=== PATIENT | female | born 1955 | race Caucasian/White ===

== ENCOUNTER 2017-05-23 11:46 | Emergency (ER) | payer BC ==
[2017-05-23 11:52] VITALS: RESP 18
[2017-05-23] MEDS ORDERED: HYDROcodone/APAP 5-325MG 1 EACH TAB PO STA (12:11)
[2017-05-23 12:30] LABS: Appearance,Urine Clear (Clear); Bilirubin,Urine Negative (Negative); Blood,Urine Negative (Negative); Color,Urine Colorless; Glucose,Urine (UA) Negative (Negative); Ketones,Urine Negative (Negative); Leukocyte Esterase,Urine Negative (Negative); Nitrite,Urine Negative (Negative); Protein,Urine Negative (Negative); Specific Gravity,Urine 1.002 (1.001-1.035); Urobilinogen,Urine <2.0 mg/dL (<2.0)
--- NOTE | 2017-05-23 12:52 | XR ---
EXAMINATION TYPE: XR pelvis AP view DATE OF EXAM: 05/23/2017 CLINICAL HISTORY: pain TECHNIQUE: Single view the pelvis is submitted. FINDINGS: No evidence for fracture, dislocation or bony lesion. Joint spaces are well-preserved. S I joints appear symmetric. IMPRESSION: 1. No acute fracture or dislocation seen. ICD 10 NO FRACTURE, INITIAL EVALUATION
--- NOTE | 2017-05-23 12:53 | XR ---
EXAMINATION TYPE: XR lumbar spine 2 or 3V DATE OF EXAM: 05/23/2017 CLINICAL HISTORY: pain TECHNIQUE: Three views of the lumbar spine are submitted. COMPARISON: None. FINDINGS: There are 5 lumbar type vertebral bodies identified. The lumbar spine shows satisfactory alignment w ithout evidence of acute fracture or dislocation. Vertebral body heights are within normal limits. Mild degenerative change at L4-5 and L5-S1. Grade 1 anterolisthesis L5 on S1. Mild scattered ventral spondylosis. The overlying soft tissue appears unremarkable. IMPRESSION: No acute fracture is seen of the lumbar spine. ICD 10 NO FRACTURE, INITIAL EVALUATION
--- NOTE | 2017-05-23 13:08 | ED ---
Abdominal Pain HPI - General Chief Complaint: Abdominal Pain Stated Complaint: Abd.pain Time Seen by Provider: 05/23/17 11:56 Source: patient Mode of arrival: ambulatory Limitations: no limitations - History of Present Illness Initial Comments: This is a 62-year-old female with a history of ovarian cysts or presents emergency department for lower abdominal pain and back pain. She states that the symptoms started a few days ago and gradually worsened. She states that she also noticed that the pain radiates down the anterior aspect of her thighs at times. She states that nothing seems to make the pain better or worse and is discussing. She tried Motrin at home however this is not improved the symptoms. She states that she has not injured herself or fallen. She denies any midline back pain. Denies any fevers or chills. No nausea, vomiting, or diarrhea. Denies any dysuria or hematuria. No other complaints. - Related Data Previous Rx's Medication Instructions Recorded HYDROcodone/APAP 5-325MG [Sherburn 1 tab PO Q6HR PRN #10 tab 05/23/17 5-325] Allergies Allergy/AdvReac Type Severity Reaction Status Date / Time No Known Allergies Allergy Verified 05/23/17 12:51 Review of Systems ROS Statement: Those systems with pertinent positive or pertinent negative responses have been documented in the HPI. ROS Other: All systems not noted in ROS Statement are negative. Past Medical History Past Medical History: Hypertension Additional Past Medical History / Comment(s): Aortic stenosis History of Any Multi-Drug Resistant Organisms: None Reported Past Surgical History: Section, Tonsillectomy, Tubal Ligation Additional Past Surgical History / Comment(s): Aortic stent, angiogram Past Psychological History: No Psychological Hx Reported Smoking Status: Never smoker Past Alcohol Use History: Occasional Past Drug Use History: None Reported General Exam - General Exam Comments Initial Comments: Constitutional: Awake alert Appears comfortable Head: Normocephalic atraumatic Eyes: no conjunctival injection No scleral icterus EOMI Neck: No JVD Supple Heart: Regular rate rhythm normal S1-S2 no murmurs Lungs: Clear to auscultation bilaterally No wheezing No rales Abdomen: Soft nondistended mild suprapubic tenderness without rebound or guarding Extremities: Non edematous DP pulses intact Radial pulses intact, no midline low back pain. There is bilateral pain over the SI joints Neuro: A&Ox3, 5 out of 5 strength with dorsiflexion and plantar flexion of bilateral lower extremities, 2 out of 4 patellar reflexes bilaterally, sensation intact to light touch in bilateral lower extremities, patient has normal gait Psych: Appropriate mood and affect Limitations: no limitations Course Vital Signs 05/23/17 11:48 Temperature 97.0 F L Pulse Rate 65 Respiratory 18 Rate Blood Pressure 133/90 O2 Sat by Pulse 99 Oximetry Medical Decision Making - Medical Decision Making This is a 62-year-old female who presents emergency department for pelvic pain. She is found to have a left-sided ovarian mass. Was unclear whether this represented a fibroid or a dermoid cyst. CAT scan was done to try to differentiate however was unable to. Recommendation is for an MRI however this will not be performed to the ER. Patient was given [employer] for follow-up and she is going to call us and she weighs. She'll be given Sherburn for pain control. Told to return she has worsening or changing symptoms. All questions were answered. - Lab Data Lab Results 05/23/17 Range/Units 12:16 Urine Color Colorless Urine Appearance Clear (Clear) Urine pH 6.0 (5.0-8.0) Ur Specific [place] 1.002 (1.001-1.035) Urine Protein Negative (Negative) Urine Glucose (UA) Negative (Negative) Urine Ketones Negative (Negative) Urine Blood Negative (Negative) Urine Nitrite Negative (Negative) Urine Bilirubin Negative (Negative) Urine Urobilinogen <2.0 (<2.0) mg/dL Ur Leukocyte Esterase Negative (Negative) Disposition Clinical Impression: Ovarian cyst Disposition: HOME SELF-CARE Condition: Stable Instructions: Ovarian Cyst (ED), Uterine Fibroids (ED) Prescriptions: HYDROcodone/APAP 5-325MG [Sherburn 5-325] 1 tab PO Q6HR PRN #10 tab PRN Reason: Pain Referrals: Marko Nieto DO [Primary Care Provider] - 1-2 days Jacinta Burch MD [STAFF PHYSICIAN] - 1-2 days
--- NOTE | 2017-05-23 13:37 | US ---
EXAMINATION TYPE: US transvaginal DATE OF EXAM: 05/23/2017 COMPARISON: US 2009 CLINICAL HISTORY: Pain. Pelvic pain radiating to back and down legs x 3 days; , C section x 2, tu bal ligation; LMP early 50's. TECHNIQUE: Transvaginal (TV) and Transabdominal (TA) Date of LMP: approximately 10 years ago EXAM MEASUREMENTS: Uterus: 6.8 x 6.0 x 2.3 cm Endometrial Stripe: 0.3 cm Right Ovary: 1.9 x 0.8 x 1.1 cm Left Ovary: may be part of uterine mass vs. large ovarian dermoid cyst 1. Uterus: Retroverted; left lateral myometrial fibroid vs. left ovarian dermoid cyst 2. Endometrium: wnl post menopausal 3. Right Ovary: small follicles 4. Left Ovary: not well seen Spectral, color and waveform doppler imaging shows good arterial and venous flow within the right o vary; there is no evidence for right ovarian torsion. 5. Bilateral Adnexa: large round/oval hyperechoic mass = 2.9 x 3.8 x 1.5cm with posterior shadowing imaged left ovary/adnexa and may be large left uterine fibroid with adjacent ovarian dermoid cyst vs. large dermoid cyst with no visualized normal left ovarian tissue. 6. Posterior cul-de-sac: wnl IMPRESSION: 1. Suspect left adnexal dermoid cyst. Consider CT correlation.
--- NOTE | 2017-05-23 14:37 | CT ---
EXAMINATION TYPE: CT pelvis wo con DATE OF EXAM: 05/23/2017 COMPARISON: Pelvic ultrasound of the same date HISTORY: Patient complains of generalized pelvic pain. Abnormal US. CT DLP: 159.5 mGycm Automated exposure control for dose reduction was used. FINDINGS: Within the left adnexa there is an approximately 3.1 x 2.4 cm lesion containing numerous calcificatio ns. This appears intimately associated with the uterus and it is unclear whether this represents an o varian lesion or pedunculated uterine leiomyoma. No distinct internal fat attenuation is seen. The ri ght ovary is not clearly identified by CT. The gonadal vein is unopacified and there is no clear conn ection with the gonadal vein with the calcified structure. Visualized bowel is nondilated. Visualized kidneys demonstrate no evidence of nephrolithiasis or hydr onephrosis. Visualized portions of the gallbladder demonstrates no evidence of cholelithiasis. No alofnzo ss evidence of adenopathy within the abdomen or pelvis. Osseous structures appear intact. IMPRESSION: LEFT ADNEXAL CALCIFIED MASS IS INTIMATELY ASSOCIATED WITH THE MYOMETRIUM AND THERE IS NO CLEAR DELINE ATION TO IDENTIFY WHETHER THIS REPRESENTS A PEDUNCULATED UTERINE FIBROID OR OVARIAN DERMOID. ENHANCED PELVIC MRI WOULD BE MORE DEFINITIVE. ALTERNATIVELY PELVIC CT WITH CONTRAST WOULD ALSO COULD ALSO DEL INEATE MORE CLEAR BORDERS OF THE UTERUS.
[2017-05-23 15:01] VITALS: BP 143/69; PULSE 68; TEMP 97.9
== END 2017-05-23 15:01 | disposition home or self-care (01) ==
LOC: EC 11:46
DX: N83.202 Unspecified ovarian cyst, left side (principal); Z98.51 Tubal ligation status
CPT/HCPCS: 72100; 72170; 72192; 76830; 76856; 81003; 93976; 99284

== ENCOUNTER → 2018-06-19 | Outpatient (CLI) | payer BC ==
--- NOTE | 2018-06-20 10:01 | MM ---
Reason for exam: screening (asymptomatic). Last mammogram was performed 3 years and 2 months ago. History: Patient is postmenopausal. Family history of breast cancer in sister at age 40. Excisional biopsy of the left breast. Took hormonal contraceptives for 3 years. Physical Findings: A clinical breast exam by your physician is recommended on an annual basis and results should be correlated with mammographic findings. MG 3D Screening Mammo W/Cad Bilateral CC and MLO view(s) were taken. Prior study comparison: April 23, 2015, bilateral MG screening mammo w CAD. March 08, 2013, mammogram, performed at [facility]. The breast tissue is heterogeneously dense. This may lower the sensitivity of mammography. Focal asymmetry central left MLO view 4.6cm from nipple. ASSESSMENT: Incomplete: need additional imaging evaluation, BI-RAD 0 RECOMMENDATION: Special view mammogram of the left breast. If lesion persists on supplemental views, image directed ultrasound is recommended. [facility] will attempt to contact patient to return for supplemental views and ultrasound if indicated.
== END | disposition home or self-care (01) ==
LOC: RADMAMWWP 14:36
PROVIDERS: ATTEND Family Medicine
DX: Z12.31 Encounter for screening mammogram for malignant neoplasm of breast (principal)
CPT/HCPCS: 77063; 77067

== ENCOUNTER → 2018-07-03 | Outpatient (CLI) | payer BC ==
--- NOTE | 2018-07-04 08:18 | MM ---
Reason for exam: additional evaluation requested from abnormal screening. Last mammogram was performed less than 1 month ago. History: Patient is postmenopausal. Family history of breast cancer in sister at age 40. Excisional biopsy of the left breast. Took hormonal contraceptives for 3 years. Physical Findings: Nurse did not find any significant physical abnormalities on exam. MG 3D Work Up W/Cad LT CC and MLO view(s) were taken of the left breast. Prior study comparison: June 19, 2018, bilateral MG 3d screening mammo w/cad. April 23, 2015, bilateral MG screening mammo w CAD. The breast tissue is heterogeneously dense. This may lower the sensitivity of mammography. No distinct lesion persists on additional views. These results were verbally communicated with the patient and result sheet given to the patient on 07/03/18. ASSESSMENT: Benign, BI-RAD 2 RECOMMENDATION: Return to routine screening mammogram schedule for both breasts.
== END | disposition home or self-care (01) ==
LOC: RADMAMWWP 14:20
PROVIDERS: ATTEND Family Medicine
DX: R92.8 Other abnormal and inconclusive findings on diagnostic imaging of breast (principal)
CPT/HCPCS: 77061; 77065

== ENCOUNTER → 2019-06-25 | Outpatient (CLI) | payer MEDICARE, BC ==
--- NOTE | 2019-06-27 10:09 | MM ---
Reason for exam: screening (asymptomatic). Last mammogram was performed 1 year ago. History: Patient is postmenopausal. Family history of breast cancer in sister at age 40. Excisional biopsy of the left breast. Took hormonal contraceptives for 3 years. Physical Findings: A clinical breast exam by your physician is recommended on an annual basis and results should be correlated with mammographic findings. MG 3D Screening Mammo W/Cad Bilateral CC and MLO view(s) were taken. Prior study comparison: June 19, 2018, bilateral MG 3d screening mammo w/cad. April 23, 2015, bilateral MG screening mammo w CAD. The breast tissue is heterogeneously dense. This may lower the sensitivity of mammography. No significant changes when compared with prior studies. ASSESSMENT: Negative, BI-RAD 1 RECOMMENDATION: Routine screening mammogram of both breasts in 1 year.
== END | disposition home or self-care (01) ==
LOC: RADMAMWWP 07:40
PROVIDERS: ATTEND Family Medicine
DX: Z12.31 Encounter for screening mammogram for malignant neoplasm of breast (principal); Z80.3 Family history of malignant neoplasm of breast
CPT/HCPCS: 77063; 77067

== ENCOUNTER → 2019-12-18 | Outpatient (CLI) | payer BC ==
--- NOTE | 2019-12-18 15:50 | US ---
EXAMINATION TYPE: US extremity nonvasc mass LT DATE OF EXAM: 12/18/2019 COMPARISON: NONE CLINICAL HISTORY: 64-year-old female R22.32 L FOREARM MASS. Left forearm palpable lump x couple weeks . TECHNIQUE: Targeted ultrasound examination along the patient's palpable site along the left forearm. FINDINGS: WEATHERIZATION OPERATIONS MANAGER NOTES: Left forearm: no abnormalities seen at patient's area of concern. IMPRESSION: Submitted images are labeled left forearm palpable. Within the superficial tissues, no solid or cysti c lesion is identified by ultrasound. Clinical follow-up recommended. The area can be rescanned if an y enlarging palpable abnormality is encountered.
== END | disposition home or self-care (01) ==
LOC: RADUSWWP 13:52
PROVIDERS: ATTEND Family Medicine
DX: R93.6 Abnormal findings on diagnostic imaging of limbs (principal)

== ENCOUNTER → 2020-01-01 | Outpatient (CLI) | payer MEDICARE ==
--- NOTE | 2020-01-01 14:11 | MR ---
EXAMINATION TYPE: MR shoulder LT wo con DATE OF EXAM: 01/01/2020 1:51 PM COMPARISON: NONE HISTORY: Pain in left shoulder TECHNIQUE: Multiplanar multispin echo imaging of the left shoulder was performed. FINDINGS: Rotator cuff : There is heterogeneity and thinning of the supraspinatus tendon compatible with chroni c tendinopathy. There is no complete or bursal/articular sided partial rotator cuff tear. The subscap ularis constituent of the rotator cuff is intact. Bursa: No bursal effusion or thickening is seen. Musculature: There is no muscular tear, contusion, or atrophy. Acromioclavicular joint : Moderate subacromial spur formation resulting in impingement. Moderate AC j oint arthropathy. Osseous structures : There are no fractures or regions of abnormal bone marrow signal intensity. Long biceps tendon : The biceps tendon is normally situated within the bicipital groove. No complete or partial biceps tendon tear is present. Glenohumeral Joint fluid : There is no glenohumeral joint effusion. Cartilage and Bone : No focal hyaline cartilage defects are noted. No Hill-Sachs, reverse Hill-Sachs, or bony Bankart lesions are seen. Labrum : There are no SLAP or soft tissue Bankart lesions. No paralabral cysts are seen. OTHER FINDINGS : Subchondral cyst formation humeral head. IMPRESSION: 1. Chronic tendinopathy supraspinatus tendon secondary to subacromial impingement.
== END | disposition home or self-care (01) ==
LOC: RADMRIMAIN 13:13
PROVIDERS: ATTEND Orthopaedic Surgery
DX: M67.814 Other specified disorders of tendon, left shoulder (principal)

== ENCOUNTER → 2020-02-06 | Outpatient (CLI) | payer MEDICARE ==
[2020-02-06 11:19] LABS: Potassium 4.6 mmol/L (3.5-5.1)
[2020-02-06 12:07] LABS: Basophils % (A) 1 %; Eosinophils # (A) 0.1 k/uL (0-0.7); Eosinophils % (A) 3 %; HCT 45.1 % (34.0-46.0); HGB 13.8 gm/dL (11.4-16.0); Lymphocytes # (A) 1.5 k/uL (1.0-4.8); Lymphocytes % (A) 37 %; MCH 29.6 pg (25.0-35.0); MCHC 30.7 g/dL (31.0-37.0); MCV 96.4 fL (80.0-100.0); Monocytes # (A) 0.3 k/uL (0-1.0); Monocytes % (A) 7 %; Neutrophils # (A) 2.1 k/uL (1.3-7.7); Neutrophils % (A) 51 %; Platelet Count 231 k/uL (150-450); RBC 4.67 m/uL (3.80-5.40); RDW 12.8 % (11.5-15.5)
== END | disposition home or self-care (01) ==
LOC: LABPAT 08:34
PROVIDERS: ATTEND Orthopaedic Surgery
DX: M75.42 Impingement syndrome of left shoulder (principal)
CPT/HCPCS: 36415; 80051; 85025; 93005

== ENCOUNTER 2020-02-20 10:45 | Day surgery (SDC) | payer MEDICARE ==
[2020-02-07 09:55] VITALS: BMI 22.4
--- NOTE | 2020-02-19 15:56 | HP ---
HISTORY AND PHYSICAL DATE OF SURGERY: 02/20/2020 Suzy Heard is a 64-year-old lady seen with progressive left shoulder pain. We discussed options for treatment. She elected to proceed with left shoulder arthroscopy. Consent was obtained. PAST MEDICAL HISTORY: Noncontributory. PAST SURGICAL HISTORY: section, tonsillectomy, lumpectomy. DAILY MEDICATIONS: Aleve. ALLERGIES: NONE. SOCIAL HISTORY: She denies tobacco use. PHYSICAL EVALUATION OF THE LEFT SHOULDER: Flexion is 100 degrees, abduction is 90 degrees, external rotation 25 degrees with weakness and pain. Tenderness along the anterolateral acromion and rotator cuff insertion site. Impingement sign is positive at 90 degrees. Drop-arm sign is positive. Distal neurovascular exam is intact. RADIOGRAPHS: Left knee radiographs revealed a type 2 anterior acromion, evidence for severe acromioclavicular joint osteoarthritis. Left shoulder MRI revealed chronic rotator cuff tendinitis, impingement and acromioclavicular joint osteoarthritis. IMPRESSION: 1. Left shoulder impingement with rotator cuff tenderness and possible rotator cuff tendon tear. 2. Left shoulder acromioclavicular joint osteoarthritis. PLAN: Left shoulder arthroscopy, subacromial decompression, possible arthroscopic rotator cuff repair, Yolette procedure and debridement. MMODL / IJN: [id number] /
[~2020-02-20 10:45] MED LIST: DEXAMETHASONE SOD PHOSPHATE 10 MG/ML 1 ML VIAL IV ONE; HYDROmorphone 0.5 MG/0.5 ML SYRINGE IVP PRN; LACTATED RINGERS 1,000 ML IV SCH; MIDAZOLAM 2 MG/2 ML VIAL IV PRN; ONDANSETRON 4 MG/2 ML VIAL IVP ONE
[2020-02-20] MEDS ORDERED: MIDAZOLAM 2 MG/2 ML VIAL IV ONE (11:57)
[2020-02-20] MEDS ORDERED: DEXAMETHASONE SOD PHOSPHATE 4 MG/ML 1 ML VIAL ONE (13:30)
[2020-02-20] MEDS ORDERED: ePHEDrine SULFATE/0.9% NACL/PF 50 MG/5 ML SYRINGE IV ONE (13:30)
[2020-02-20] MEDS ORDERED: PROPOFOL 10 MG/ML 20 ML VIAL IV ONE (13:30)
[2020-02-20] MEDS ORDERED: fentaNYL (PF) 50 MCG/ML 2 ML AMP ONE (13:30)
[2020-02-20] MEDS ORDERED: SUCCINYLCHOLINE CHLORIDE 100 MG/5 ML SYR IV ONE (13:30)
[2020-02-20] MEDS ORDERED: LIDOCAINE 1% INJ 10MG/ML (20 ML MDV) ONE (13:30)
[2020-02-20] MEDS ORDERED: MIDAZOLAM 2 MG/2 ML VIAL ONE (13:30)
[2020-02-20] MEDS ORDERED: LACTATED RINGERS 1,000 ML IV ONE (14:16)
--- NOTE | 2020-02-20 15:00 | P.OP ---
Date of Procedure: 02/20/20 Preoperative Diagnosis: Left shoulder impingement Postoperative Diagnosis: 1. Left shoulder impingement 2. Left shoulder acromioclavicular joint osteoarthritis 3. Left shoulder partial long head biceps tendon tear Procedure(s) Performed: 1. Left shoulder arthroscopic subacromial decompression 2. Left shoulder arthroscopic Yolette procedure 3. Left shoulder arthroscopic biceps tenotomy Anesthesia: GETA, regional (Interscalene block) Surgeon: Dirk Byrd Estimated Blood Loss (ml): 9 Pathology: none sent Condition: stable Disposition: PACU Indications for Procedure: 64-year-old patient seen with progressive left shoulder pain. After treatment options were discussed, she elected to proceed with arthroscopy. Operative Findings: see description of procedure Description of Procedure: Patient underwent an interscalene block by department of anesthesia. The patient was then taken to the operative suite. The patient underwent a general anesthetic by the department of anesthesia. The patient was placed into a lateral position and secured. There was appropriate padding of the bony prominence. Left shoulder was then prepped and draped in normal sterile orthopedic fashion. We placed the extremity in 10 pounds of longitudinal traction. A posterior incision was now made for a posterior working portal site. The trocar and cannula were inserted into the glenohumeral joint. Arthroscopy was initiated. Spinal needle was now inserted anteriorly, to ascertain the anterior working portal site. An incision was now made in that area, a trocar was inserted followed by a probe. There were some grade 1 chondromalacia changes of the humeral head. There was some hyperemia and partial tearing long head biceps tendon. The labrum was stable. I performed an arthroscopic biceps tenotomy. I again probed the labrum and it was found to be stable. I now removed the instruments from glenohumeral joint. Utilizing the posterior working portal site, the trocar and cannula were inserted into the subacromial space. Arthroscopy initiated. I made an incision 2 fingerbreadths lateral to the acromion. I introduced my trocar followed by my ArthroCare ablator. I now began ablating thick subacromial bursal tissue, which exposed the undersurface of the anterior acromion. There was diminished subacromial space. There was a very prominent anterior acromion. A motorized bur was introduced and a subacromial decompression was performed. I also excised some osteophytes off the inferior aspect of the distal clavicle. The AC joint was visualized and noted to be fairly arthritic. The motorized bur was introduced in the anterior portal site and a Yolette procedure was performed without difficulty, decompressing the AC joint nicely. I turned my attention to the rotator cuff. There was some partial tearing noted along the distal supraspinatus. I introduced a motorized shaver and debrided that down to some stable tendon tissue. I now thoroughly probed the rotator cuff tendon and did not identify any full-thickness perforation tears. I now injected 1 mL Renyte intra-articular. Instruments now removed from the portal sites. All portal sites were approximated with nylon suture. Sterile dressings were applied followed by a shoulder sling. The patient was awakened, transferred to a bed, and taken to recovery in stable condition.
[2020-02-20 15:01] VITALS: TEMP 96
[2020-02-20 15:40] VITALS: RESP 18
[2020-02-20] MEDS ORDERED: HYDROcodone/APAP 5-325MG 1 EACH TAB ONE (16:17)
[2020-02-20] MEDS ORDERED: HYDROcodone/APAP 5-325MG 1 EACH TAB PO ONE (16:20)
[2020-02-20 16:57] VITALS: BP 146/79; PULSE 69
--- NOTE | 2020-02-21 07:59 | P.ANPRN ---
Procedure Note - Anesthesia - Nerve Block Performed Left Interscalene Single Time Out Performed: Yes Date of Procedure: 02/20/20 Procedure Start Time: 11:56 Procedure Stop Time: 12:01 Location of Patient: PreOp Indication: Acute Post-Operative Pain, Requested by Surgeon Sedation Type: Sedate with meaningful contact maintained Preparation: Sterile Prep Position: Supine Needle Types: Pajunk Needle Gauge: 21 Ultrasound used to visualize needle placement: Yes Ultrasound used to observe medication spread: Yes Blood Aspirated: No Pain Paresthesia on Injection Noted: No Resistance on Injection: Normal Image Stored and Saved: Yes Events: Uneventful and Well Tolerated (ropi .5% 30cc plux dexamrthasone 4mg)
== END 2020-02-20 17:16 | disposition home or self-care (01) ==
LOC: OR 10:45
PROVIDERS: ATTEND Orthopaedic Surgery
DX: M75.112 Incomplete rotator cuff tear or rupture of left shoulder, not specified as traumatic (principal); M75.42 Impingement syndrome of left shoulder; M19.012 Primary osteoarthritis, left shoulder; M94.212 Chondromalacia, left shoulder; M25.712 Osteophyte, left shoulder; S46.112A Strain of muscle, fascia and tendon of long head of biceps, left arm, initial encounter; I10 Essential (primary) hypertension; Z98.51 Tubal ligation status; Z98.890 Other specified postprocedural states; Z98.891 History of uterine scar from previous surgery; Z95.5 Presence of coronary angioplasty implant and graft
CPT/HCPCS: 64415; 76942; 29824; 29826; 29823; Q4212; J2250; J1100 ×2; J2405; J0690; J2001; J3010; J0330; J2704; J1170

== ENCOUNTER → 2020-11-20 | Outpatient (CLI) | payer MEDICARE ==
--- NOTE | 2020-11-20 13:47 | XR ---
EXAMINATION TYPE: XR KUB DATE OF EXAM: 11/20/2020 1:39 PM CLINICAL HISTORY: Left flank pain x2 weeks TECHNIQUE: Single supine KUB image of the abdomen is obtained. COMPARISON: None. FINDINGS: Scattered gas is seen in non-distended small bowel loops. Gas and fecal material is seen in non-distended colon. Calcifications in the pelvis most likely represent leiomyomata. Ultrasound coul d be obtained if clinically warranted. IMPRESSION: Overall nonobstructive bowel gas pattern.
== END | disposition home or self-care (01) ==
LOC: RADXRWHC 12:05
PROVIDERS: ATTEND Nurse Practitioner Family
DX: R10.9 Unspecified abdominal pain (principal)
CPT/HCPCS: 74018

== ENCOUNTER → 2022-03-15 | Outpatient (CLI) | payer MEDICARE ==
--- NOTE | 2022-03-16 08:06 | MM ---
Reason for Exam: Screening (asymptomatic). Last mammogram was performed 2 year(s) and 9 month(s) ago. Patient History: Menarche at age 16. First Full-Term at age 22. Postmenopausal. Patient used Hormonal Contraceptives for 3 years. Excisional Biopsy on the Left side. Sister had breast cancer, age 40. Risk Values: Brittany 5 year model risk: 3.5%. NCI Lifetime model risk: 11.1%. Prior Study Comparison: 06/19/2018 Bilateral Screening Mammogram, [facility]. 07/03/2018 Left Diagnostic Mammogram, [facility]. 06/25/2019 Bilateral Screening Mammogram, [facility]. Tissue Density: The breast tissue is heterogeneously dense. This may lower the sensitivity of mammography. Findings: Analyzed By CAD. Benign-appearing right axillary lymph nodes are redemonstrated. There is no suspicious new group of microcalcifications or new suspicious mass in either breast. Overall Assessment: Negative, BI-RAD 1 Management: Screening Mammogram of both breasts in 1 year. A clinical breast exam by your physician is recommended on an annual basis and results should be correlated with mammographic findings. Electronically signed and approved by: Armani Stahl M.D.
== END | disposition home or self-care (01) ==
LOC: RADMAMWWP 09:42
PROVIDERS: ATTEND Family Medicine
DX: Z12.31 Encounter for screening mammogram for malignant neoplasm of breast (principal); Z80.3 Family history of malignant neoplasm of breast; Z78.0 Asymptomatic menopausal state
CPT/HCPCS: 77063; 77067

== ENCOUNTER → 2023-06-02 | Outpatient (CLI) | payer MEDICARE ==
--- NOTE | 2023-06-05 09:23 | MM ---
Reason for Exam: Screening (asymptomatic). Last mammogram was performed 1 year(s) and 2 month(s) ago. Patient History: Menarche at age 16. First Full-Term at age 22. Postmenopausal. Patient used Hormonal Contraceptives for 3 years. Excisional Biopsy on the Left side. Sister had breast cancer, age 40. Risk Values: Brittany 5 year model risk: 3.5%. NCI Lifetime model risk: 10.7%. Prior Study Comparison: 07/03/2018 Left Diagnostic Mammogram, [facility]. 06/25/2019 Bilateral Screening Mammogram, [facility]. 03/15/2022 Bilateral MG 3D screening mammo w/cad, [facility]. Tissue Density: The breast tissue is heterogeneously dense. This may lower the sensitivity of mammography. Findings: Analyzed By CAD. There is no suspicious group of microcalcifications or new suspicious mass in either breast. Overall Assessment: Negative, BI-RAD 1 Management: Screening Mammogram of both breasts in 1 year. . Patient should continue monthly self-breast exams. A clinical breast exam by your physician is recommended on an annual basis. This exam should not preclude additional follow-up of suspicious palpable abnormalities. Note on Brittany scores and lifetime risk: 1. A Brittany score greater than 3% is considered moderate risk. If this is the case, consider specialist referral to assess eligibility for a risk reducing agent. 2. If overall lifetime risk for the development of breast cancer is 20% or higher, the patient may qualify for future screening with alternating mammogram and breast MRI. Electronically signed and approved by: Jeison Reid M.D. Radiologis
== END | disposition home or self-care (01) ==
LOC: RADMAMWWP 08:51
PROVIDERS: ATTEND Family Medicine
DX: Z12.31 Encounter for screening mammogram for malignant neoplasm of breast (principal); Z80.3 Family history of malignant neoplasm of breast; Z78.0 Asymptomatic menopausal state
CPT/HCPCS: 77063; 77067

== ENCOUNTER → 2024-10-16 | Outpatient (CLI) | payer MEDICARE ==
--- NOTE | 2024-10-17 08:45 | BD ---
EXAMINATION TYPE: Axial Bone Density DATE OF EXAM: 10/16/2024 CLINICAL HISTORY: 69 years old Female. ICD-10 CODE: Z78.0 POST MENOPAUSAL , Additional History: Height: 63.75 Weight: 126.2 FRAX RISK QUESTIONS: Alcohol (3 or more units per day): no Family History (Parent hip fracture): no Glucocorticoids (More than 3mos): no (Ex: prednisone, prednisolone, methylprednisolone, dexamethasone, and hydrocortisone). History of Fracture in Adulthood: no Secondary Osteoporosis: 1. Type 1 Diabetes: no 2. Hyperthyroidism: no 3. Menopause before 45: no 4. Malnutrition: no 5. Chronic liver disease: no Rheumatoid Arthritis: no Current Tobacco Use: no RISK FACTORS HISTORY OF: Hip Fracture (Right/Left): no Spine Fracture: no History of Wrist Fracture: no Surgery to Spine/Hip(right/left)/Wrist (right/left): no MEDICATIONS: Thyroid Medications: no Osteoporosis Medications: no EXAM MEASUREMENTS: Bone mineral densitometry was performed using the [employer] System. Bone mineral density as measured about the Lumbar spine is: ----- L1-L4(G/cm2): 0.926 T Score Values are as follows: ----- L1: -2.4 ----- L2: -2.4 ----- L3: -1.9 ----- L4: -1.9 ----- L1-L4: -2.1 Z Score Values are as follows: ----- L1: -0.4 ----- L2: -0.5 ----- L3: 0.0 ----- L4: 0.0 ----- L1-L4: -0.2 Baseline Study Bone mineral density about the R hip (g/cm2): 0.787 Bone mineral density about the L hip (g/cm2): 0.774 T Score values are as follows: -----R Neck: -1.4 -----L Neck: -1.6 -----R Total: -1.8 -----L Total: -1.9 Z Score values are as follows: -----R Neck: 0.5 -----L Neck: 0.3 -----R Total: -0.14 -----L Total: -0.2 Baseline Study FRAX%s: The graph provided illustrates a 9.5% chance for a major osteoporotic fx and a 1.6% chance fo r the hips probability for fx in 10 years time. IMPRESSION: Osteopenia (T Score between -2.5 and -1). There is slightly increased risk of fracture and the patient may be considered for treatment. Re-Screen 2-5 years. NOTE: T-SCORE=SD OF THE YOUNG ADULT MEAN. [facility], , 10/17/2024 8:43 AM
--- NOTE | 2024-10-17 16:15 | MM ---
Reason for Exam: Screening (asymptomatic). Last mammogram was performed 1 year(s) and 5 month(s) ago. Patient History: Menarche at age 16. First Full-Term at age 22. Postmenopausal. Patient used Hormonal Contraceptives for 3 years. Excisional Biopsy on the Left side. Sister had breast cancer, age 40. Risk Values: Brittany 5 year model risk: 3.6%. NCI Lifetime model risk: 10.2%. Prior Study Comparison: 06/25/2019 Bilateral Screening Mammogram, [facility]. 03/15/2022 Bilateral MG 3D screening mammo w/cad, [facility]. 06/02/2023 Bilateral MG 3D screening mammo w/cad, [facility]. Tissue Density: There are scattered areas of fibroglandular density. Findings: Analyzed By CAD. Skin lesion left breast redemonstrated. There is no suspicious group of microcalcifications or new suspicious mass in either breast. Overall Assessment: Negative, BI-RAD 1 Management: Screening Mammogram of both breasts in 1 year. . Patient should continue monthly self-breast exams. A clinical breast exam by your physician is recommended on an annual basis. This exam should not preclude additional follow-up of suspicious palpable abnormalities. Note on Brittany scores and lifetime risk: 1. A Brittany score greater than 3% is considered moderate risk. If this is the case, consider specialist referral to assess eligibility for a risk reducing agent. 2. If overall lifetime risk for the development of breast cancer is 20% or higher, the patient may qualify for future screening with alternating mammogram and breast MRI. [facility], , 10/16/2024 3:53 PM. Electronically signed and approved by: Armani Stahl M.D.
== END | disposition home or self-care (01) ==
LOC: RADMAMWWP 15:06
PROVIDERS: ATTEND Family Medicine
DX: Z12.31 Encounter for screening mammogram for malignant neoplasm of breast (principal); M85.89 Other specified disorders of bone density and structure, multiple sites; R92.323 Mammographic fibroglandular density, bilateral breasts; Z78.0 Asymptomatic menopausal state; Z80.3 Family history of malignant neoplasm of breast; Z92.0 Personal history of contraception
CPT/HCPCS: 77063; 77067; 77080